=== PATIENT | female | born 1965 | race African-American/Black ===

== ENCOUNTER → 2022-05-30 | Day surgery (SDC) | payer OTHER ==
[~2022-05-30] MED LIST: AMITRIPTYLINE100 MG PO; FLECTOR1 EACH TOP; HYDROXYZINE HCL10 MG PO; OMEPRAZOLE40 MG PO; POVIDONE IODINE 0.05% 0.05 % ML PO ONE; PROPOFOL IV EMULSION 10 MG/ML 50 ML VIAL IV ONE; SIMVASTATIN10 MG PO; SUMATRIPTAN SUC25 MG PO; TYLENOL EXTRA500 MG PO
[2022-05-30 13:00] VITALS: BP 109/82
== END | disposition home or self-care (01) ==
LOC: OR 08:55
PROVIDERS: ATTEND Internal Medicine Gastroenterology
DX: Z12.11 Encounter for screening for malignant neoplasm of colon (principal); D12.2 Benign neoplasm of ascending colon; D12.4 Benign neoplasm of descending colon; K29.70 Gastritis, unspecified, without bleeding; K21.00 Gastro-esophageal reflux disease with esophagitis, without bleeding; K31.89 Other diseases of stomach and duodenum; K44.9 Diaphragmatic hernia without obstruction or gangrene; K64.8 Other hemorrhoids; G47.33 Obstructive sleep apnea (adult) (pediatric); E78.5 Hyperlipidemia, unspecified; M54.9 Dorsalgia, unspecified; F32.A Depression, unspecified; Z01.810 Encounter for preprocedural cardiovascular examination; Z79.899 Other long term (current) drug therapy; Z68.33 Body mass index [BMI] 33.0-33.9, adult
CPT/HCPCS: 43239; 45380; 93005